=== PATIENT | female | born 1935 | race African-American/Black ===

== ENCOUNTER 2022-07-08 09:38 | Inpatient (IN) ==
[2022-07-08 10:35] LABS: Bilirubin,Urine Negative (Negative); Blood,Urine Negative (Negative); Clarity,Urine Clear (Clear); Color,Urine Colorless (Yellow); Glucose,Urine (UA) Normal (Normal); Ketones,Urine Negative (Negative); Leukocyte Esterase,Urine Negative (Negative); Nitrite,Urine Negative (Negative); Protein,Urine Trace mg/dL (Neg-Trace); Specific Gravity,Urine 1.008 (1.010-1.025); Urobilinogen,Urine Normal (Normal)
[2022-07-08 10:38] LABS: Basophils # 0.1 K/mcL (0.0-0.2); Basophils % 0.8 %; Eosinophils # 0.2 K/mcL (0.0-0.6); Immature Granulocytes % 0.9 % (0-4); Lymphocytes # 0.6 K/mcL (0.6-4.6); Lymphocytes % 6.6 %; Mean Corpuscular HGB Conc 29.4 g/dL (31.6-35.5); Mean Corpuscular Hemoglobin 24.8 pg (28.0-33.3); Mean Corpuscular Volume 84.3 fL (83.0-100.0); Mean Platelet Volume 10.4 fL (9.4-12.4); Monocytes # 0.7 K/mcL (0.0-1.3); Monocytes % 7.7 %; Neutrophils # 7.4 K/mcL (1.6-8.9); Platelet Count 453 K/mcL (140-400); Red Blood Count 4.27 M/mcL (3.82-4.97); Red Cell Distribution Width 18.8 % (11.5-14.5)
[2022-07-08 10:40] LABS: Hemoglobin 10.6 g/dL (11.5-15.4)
[2022-07-08 11:02] LABS: Calcium 16.3 mg/dL (8.6-10.3); Troponin I 0.09 ng/mL (< 0.04)
[2022-07-08] MEDS ORDERED: 0.9 % Sodium Chloride 1,000 ML IVC ONE (11:08)
[2022-07-08] MEDS ORDERED: Naloxone 0.4 MG/ML INJ IVP PRN (13:22)
[2022-07-08] MEDS ORDERED: Dextrose Gel 15 GM/37.5 ML TUBE PO PRN ×2 (13:28)
[2022-07-08] MEDS ORDERED: D5% in Water 1,000 ML IVC PRN (13:28)
[2022-07-08] MEDS ORDERED: *HR* Dextrose 50 % in Water (Syg) 50 ML SYRINGE IVP PRN (13:28)
[2022-07-08] MEDS: 0.9 % Sodium Chloride 1,000 ML IVC SCH (15:50)
[2022-07-08] MEDS ORDERED: *HR* Dextrose 50 % in Water (Syg) 50 ML SYRINGE IVP ONE (16:41)
[2022-07-08] MEDS: Insulin LISPRO 300 UNITS/3 ML VIAL SUBQ SCH ×2 (17:02→21:25)
[2022-07-08] MEDS: *HR* Heparin 5,000 UNIT/ML VIAL SQ SCH (21:25)
[2022-07-09] MEDS: 0.9 % Sodium Chloride 1,000 ML IVC SCH ×3 (03:43→22:54)
[2022-07-09] MEDS: *HR* Heparin 5,000 UNIT/ML VIAL SQ SCH ×3 (05:19→22:53)
[2022-07-09 05:54] LABS: Basophils # 0.1 K/mcL (0.0-0.2); Basophils % 0.8 %; Eosinophils # 0.3 K/mcL (0.0-0.6); Eosinophils % 4.6 %; Hematocrit 31.4 % (35.3-44.9); Hemoglobin 9.4 g/dL (11.5-15.4); Immature Granulocytes % 0.8 % (0-4); Lymphocytes # 0.8 K/mcL (0.6-4.6); Lymphocytes % 13.6 %; Mean Corpuscular HGB Conc 29.9 g/dL (31.6-35.5); Mean Corpuscular Hemoglobin 25.1 pg (28.0-33.3); Mean Platelet Volume 9.9 fL (9.4-12.4); Monocytes # 0.7 K/mcL (0.0-1.3); Neutrophils # 4.2 K/mcL (1.6-8.9); Platelet Count 384 K/mcL (140-400); Red Blood Count 3.74 M/mcL (3.82-4.97); Red Cell Distribution Width 18.6 % (11.5-14.5); Segmented Neutrophils % 69.2 %; White Blood Count 6.1 K/mcL (4.3-11.1)
[2022-07-09 06:25] LABS: Bilirubin,Total 0.3 mg/dL (0.3-1.0); Calcium 14.5 mg/dL (8.6-10.3); Globulin 2.9 g/dL (2.4-3.5); Potassium 3.1 mEq/L (3.5-5.1); Total Protein 5.9 g/dL (6.4-8.9)
[2022-07-09] MEDS: Insulin LISPRO 300 UNITS/3 ML VIAL SUBQ SCH ×4 (09:49→22:30)
[2022-07-09 16:18] LABS: Calcium 14.3 mg/dL (8.6-10.3); Potassium 3.5 mEq/L (3.5-5.1)
[2022-07-09] MEDS ORDERED: Calcitonin-Salmon, Synthetic 400 UNIT/2 ML VIAL IM ONE (16:19)
[2022-07-09] MEDS ORDERED: Calcitonin-Salmon, Synthetic 400 UNIT/2 ML VIAL SQ ONE (16:28)
[2022-07-10 00:40] LABS: A.calcoaceticus-baumannii cplx Not Detected (Not Detect); Bacteroides fragilis by PCR Not Detected (Not Detect); Candida albicans by PCR Not Detected (Not Detect); Candida auris by PCR Not Detected (Not Detect); Candida glabrata by PCR Not Detected (Not Detect); Candida krusei by PCR Not Detected (Not Detect); Candida parapsilosis by PCR Not Detected (Not Detect); Candida tropicalis by PCR Not Detected (Not Detect); Crypto. neoformans/gattii PCR Not Detected (Not Detect); Enterobacter cloacae Cmplx PCR Not Detected (Not Detect); Enterobacterales by PCR Not Detected (Not Detect); Enterococcus faecalis by PCR Not Detected (Not Detect); Enterococcus faecium by PCR Not Detected (Not Detect); Escherichia coli by PCR Not Detected (Not Detect); Klebs. pneumoniae group by PCR Not Detected (Not Detect); Klebsiella aerogenes by PCR Not Detected (Not Detect); Klebsiella oxytoca by PCR Not Detected (Not Detect); Proteus by PCR Not Detected (Not Detect); Pseudomonas aeruginosa by PCR Not Detected (Not Detect); Salmonella species by PCR Not Detected (Not Detect); Serratia marcescens by PCR Not Detected (Not Detect); Staph epidermidis by PCR DETECTED (Not Detect); Staph lugdunensis by PCR Not Detected (Not Detect); Staphylococcus aureus by PCR Not Detected (Not Detect); Staphylococcus by PCR Not Detected (Not Detect); Stenotrophomonas maltophilia Not Detected (Not Detect); Streptococcus agalactiae(B)PCR Not Detected (Not Detect); Streptococcus by PCR Not Detected (Not Detect); Streptococcus pneumoniae PCR Not Detected (Not Detect); Streptococcus pyogenes (A) PCR Not Detected (Not Detect); mecA/C Methicillin-Resist Gene DETECTED (Not Detect)
[2022-07-10] MEDS ORDERED: Zoledronic Acid (Reclast) 5 MG/100 ML INFUS..BTL IVPB ONE (00:56)
[2022-07-10 01:42] LABS: Basophils # 0.1 K/mcL (0.0-0.2); Basophils % 0.9 %; Eosinophils # 0.3 K/mcL (0.0-0.6); Eosinophils % 3.7 %; Hemoglobin 8.9 g/dL (11.5-15.4); Immature Granulocytes % 0.6 % (0-4); Lymphocytes # 0.7 K/mcL (0.6-4.6); Lymphocytes % 9.8 %; Mean Corpuscular HGB Conc 29.7 g/dL (31.6-35.5); Mean Corpuscular Hemoglobin 25.1 pg (28.0-33.3); Mean Corpuscular Volume 84.5 fL (83.0-100.0); Monocytes # 0.5 K/mcL (0.0-1.3); Monocytes % 6.9 %; Neutrophils # 5.3 K/mcL (1.6-8.9); Platelet Count 391 K/mcL (140-400); Red Blood Count 3.55 M/mcL (3.82-4.97); Red Cell Distribution Width 18.6 % (11.5-14.5); Segmented Neutrophils % 78.1 %; White Blood Count 6.8 K/mcL (4.3-11.1)
[2022-07-10] MEDS ORDERED: Zoledronic Acid (Zometa) 4 MG in 0.9 % Sodium Chloride 100 ML IV ONE (02:00)
[2022-07-10 02:23] LABS: Calcium 13.1 mg/dL (8.6-10.3); Magnesium 2.3 mg/dL (1.6-2.6); Phosphorous 2.5 mg/dL (2.7-4.5); Potassium 3.7 mEq/L (3.5-5.1)
[2022-07-10 04:25] LABS: Protein/Creatinine Ratio,Urine 1.65 mg/mg (0.00-0.20); Sodium, Urine 70.2 mEq/L
[2022-07-10] MEDS: *HR* Heparin 5,000 UNIT/ML VIAL SQ SCH ×3 (05:27→20:09)
[2022-07-10] MEDS ORDERED: Bisacodyl 10 MG RECTAL SUPPOSITORY RC PRN (07:36)
[2022-07-10] MEDS ORDERED: COCOA BUTTER RC PRN (07:36)
[2022-07-10] MEDS ORDERED: *HR* OxyCODONE Immed Rel 5 MG TABLET PO PRN (07:36)
[2022-07-10] MEDS ORDERED: [UNRECOGNIZED DRUG - OTHER] RC PRN (07:36)
[2022-07-10] MEDS ORDERED: Lactulose Oral Soln 20 GM/30 ML UDC PO PRN (07:36)
[2022-07-10] MEDS ORDERED: PHENYLEPHRINE HCL RC PRN (07:36)
[2022-07-10] MEDS ORDERED: polyethylene glycoL 3350 17 GM POWD.PACK PO PRN (07:36)
[2022-07-10] MEDS: Insulin LISPRO 300 UNITS/3 ML VIAL SUBQ SCH ×4 (07:49→20:09)
[2022-07-10] MEDS: Ascorbic Acid 500 MG TABLET PO SCH (07:51)
[2022-07-10] MEDS: MOM Conc 10 ML UD.LIQ PO SCH (07:52)
[2022-07-10] MEDS: Magnesium Oxide 400 MG TABLET PO SCH (07:52)
[2022-07-10] MEDS: 0.9 % Sodium Chloride 1,000 ML IVC SCH ×2 (07:53→18:20)
[2022-07-10] MEDS ORDERED: Calcitonin-Salmon, Synthetic 400 UNIT/2 ML VIAL SQ ONE (12:25)
[2022-07-10] MEDS: Mirtazapine 15 MG TABLET PO SCH (20:09)
[2022-07-10] MEDS: Gabapentin 300 MG CAPSULE PO SCH (20:09)
[2022-07-11 04:53] LABS: Basophils # 0.1 K/mcL (0.0-0.2); Basophils % 0.9 %; Eosinophils # 0.3 K/mcL (0.0-0.6); Eosinophils % 4.7 %; Hemoglobin 8.9 g/dL (11.5-15.4); Immature Granulocytes % 0.8 % (0-4); Lymphocytes # 0.9 K/mcL (0.6-4.6); Mean Corpuscular HGB Conc 29.7 g/dL (31.6-35.5); Mean Corpuscular Hemoglobin 24.8 pg (28.0-33.3); Mean Corpuscular Volume 83.6 fL (83.0-100.0); Mean Platelet Volume 9.5 fL (9.4-12.4); Monocytes # 0.5 K/mcL (0.0-1.3); Monocytes % 8.1 %; Neutrophils # 4.7 K/mcL (1.6-8.9); Platelet Count 351 K/mcL (140-400); Red Blood Count 3.59 M/mcL (3.82-4.97); Red Cell Distribution Width 18.6 % (11.5-14.5); Segmented Neutrophils % 72.5 %; White Blood Count 6.5 K/mcL (4.3-11.1)
[2022-07-11 05:10] LABS: Calcium 11.4 mg/dL (8.6-10.3); Magnesium 1.9 mg/dL (1.6-2.6); Phosphorous 1.7 mg/dL (2.7-4.5); Potassium 3.6 mEq/L (3.5-5.1)
[2022-07-11] MEDS: *HR* Heparin 5,000 UNIT/ML VIAL SQ SCH ×3 (05:50→22:12)
[2022-07-11] MEDS: Magnesium Oxide 400 MG TABLET PO SCH (08:31)
[2022-07-11] MEDS: MOM Conc 10 ML UD.LIQ PO SCH (08:31)
[2022-07-11] MEDS: Ascorbic Acid 500 MG TABLET PO SCH (08:31)
[2022-07-11] MEDS: Insulin LISPRO 300 UNITS/3 ML VIAL SUBQ SCH ×4 (08:34→21:59)
[2022-07-11] MEDS: Colchicine 0.6 MG TABLET PO SCH (08:36)
[2022-07-11] MEDS: 0.9 % Sodium Chloride 1,000 ML IVC SCH (08:38)
[2022-07-11] MEDS: Mirtazapine 15 MG TABLET PO SCH (22:11)
[2022-07-11] MEDS: Gabapentin 300 MG CAPSULE PO SCH (22:12)
[2022-07-12 02:15] LABS: Basophils % 0.9 %; Eosinophils # 0.3 K/mcL (0.0-0.6); Eosinophils % 6.2 %; Hematocrit 28.1 % (35.3-44.9); Hemoglobin 8.3 g/dL (11.5-15.4); Immature Granulocytes % 0.9 % (0-4); Lymphocytes # 0.9 K/mcL (0.6-4.6); Lymphocytes % 20.3 %; Mean Corpuscular HGB Conc 29.5 g/dL (31.6-35.5); Mean Corpuscular Hemoglobin 24.9 pg (28.0-33.3); Mean Corpuscular Volume 84.1 fL (83.0-100.0); Mean Platelet Volume 9.5 fL (9.4-12.4); Monocytes # 0.6 K/mcL (0.0-1.3); Monocytes % 12.3 %; Neutrophils # 2.7 K/mcL (1.6-8.9); Platelet Count 290 K/mcL (140-400); Red Blood Count 3.34 M/mcL (3.82-4.97); Red Cell Distribution Width 18.9 % (11.5-14.5); Segmented Neutrophils % 59.4 %; White Blood Count 4.5 K/mcL (4.3-11.1)
[2022-07-12 02:38] LABS: Albumin 2.6 g/dL (3.5-5.7); Albumin/Globulin Ratio 1.1 (1.1-2.2); Bilirubin,Total 0.2 mg/dL (0.3-1.0); Calcium 9.8 mg/dL (8.6-10.3); Globulin 2.4 g/dL (2.4-3.5); Potassium 3.7 mEq/L (3.5-5.1)
[2022-07-12] MEDS: 0.9 % Sodium Chloride 1,000 ML IVC SCH ×3 (03:12→23:17)
[2022-07-12] MEDS: *HR* Heparin 5,000 UNIT/ML VIAL SQ SCH ×3 (06:55→21:16)
[2022-07-12] MEDS: Insulin LISPRO 300 UNITS/3 ML VIAL SUBQ SCH ×4 (07:55→21:16)
[2022-07-12] MEDS: Ascorbic Acid 500 MG TABLET PO SCH (08:44)
[2022-07-12] MEDS: MOM Conc 10 ML UD.LIQ PO SCH (08:44)
[2022-07-12] MEDS: Magnesium Oxide 400 MG TABLET PO SCH (08:44)
[2022-07-12] MEDS: Mirtazapine 15 MG TABLET PO SCH (21:15)
[2022-07-12] MEDS: Gabapentin 300 MG CAPSULE PO SCH (21:15)
[2022-07-13] MEDS: *HR* Heparin 5,000 UNIT/ML VIAL SQ SCH ×2 (04:53→17:07)
[2022-07-13] MEDS: Insulin LISPRO 300 UNITS/3 ML VIAL SUBQ SCH ×3 (07:32→17:07)
[2022-07-13] MEDS: Colchicine 0.6 MG TABLET PO SCH (09:56)
[2022-07-13] MEDS: Magnesium Oxide 400 MG TABLET PO SCH (09:56)
[2022-07-13] MEDS: Ascorbic Acid 500 MG TABLET PO SCH (09:56)
[2022-07-13] MEDS: MOM Conc 10 ML UD.LIQ PO SCH (09:57)
[2022-07-13 14:40] LABS: Influenza A PCR Negative (Negative); Influenza B PCR Negative (Negative); Resp. Syncytial Virus PCR Negative (Negative); SARS-CoV-2 by PCR (In House) Negative (Negative)
[2022-07-13 16:40] VITALS: BP 108/56; PULSE 97; TEMP 98.1; O2SAT 98
== END 2022-07-13 17:54 | DRG 682 ==
LOC: 3ANU 09:38 → EMEROOARM 09:38 → SUATTDRO 12:39 → 3ANU 14:40
PROVIDERS: ADMIT Internal Medicine; ATTEND Family Medicine